=== PATIENT | female | born 1955 | race Caucasian/White ===

== ENCOUNTER 2021-04-29 14:58 | Emergency (ER) | payer OTHER ==
[2021-04-29] MEDS ORDERED: IBUPROFEN 600 MG TABLET (FP) PO ONE (15:03)
[2021-04-29 15:09] VITALS: BP 148/83; PULSE 63; TEMP 98.3; BMI 25.3
[2021-04-29] MEDS ORDERED: ACETAMINOPHEN 325 MG TABLET (FP) PO ONE (15:13)
[2021-04-29] MEDS ORDERED: ACETAMINOPHEN 325 MG TABLET (FP) ONE (15:30)
== END 2021-04-29 16:13 | disposition home or self-care (01) ==
LOC: FER 14:58
DX: S59.902A Unspecified injury of left elbow, initial encounter (principal); S00.81XA Abrasion of other part of head, initial encounter; S01.21XA Laceration without foreign body of nose, initial encounter; W01.198A Fall on same level from slipping, tripping and stumbling with subsequent striking against other object, initial encounter
CPT/HCPCS: 73070-TC-LT-FY; 73110-TC-LT-FY; 99284-25

== ENCOUNTER 2023-09-05 15:38 | Emergency (ER) | payer OTHER ==
[2023-09-05] MEDS ORDERED: ASPIRIN 81 MG CHEWABLE TABLETS PO ONE (15:41)
[2023-09-05] MEDS ORDERED: ASPIRIN 325 MG TABLET ONE (15:52)
[2023-09-05 16:00] VITALS: BP 153/87; PULSE 70; RESP 17; TEMP 98; BMI 23.8
[2023-09-05 16:38] LABS: HEMATOCRIT 40.6 % (32.4-45.2); HEMOGLOBIN 13.9 G/dL (10.7-15.3); MCHC 34.2 g/dl (32.0-36.0); MEAN CELL VOLUME 90.7 fl (80-96); MEAN PLT VOLUME 8.3 fl (7.5-11.1); PLATELET COUNT 205.8 10^3/uL (134-434); RBC 4.48 10^6/uL (3.60-5.2); RDW 14.7 % (11.6-15.6)
[2023-09-05 16:48] LABS: INR 1.02 (0.83-1.09); PROTHROMBIN TIME (PATIENT) 11.8 SEC (9.7-13.0)
[2023-09-05 16:51] LABS: ACTIVATED PTT 31.4 SECONDS (25.2-36.5)
[2023-09-05 16:53] LABS: PLATELET ESTIMATE ADEQUATE
[2023-09-05 16:53] LABS: ALBUMIN 4.6 g/dl (3.4-5.0); CALCIUM 10.3 mg/dl (8.5-10.1); CREATININE 0.6 mg/dl (0.6-1.3); TOT PROT 6.9 g/dl (6.4-8.2)
== END 2023-09-05 18:33 | disposition home or self-care (01) ==
LOC: FER 15:38
DX: R07.89 Other chest pain (principal)
CPT/HCPCS: 36415; 71046-TC-FY; 80053; 82550; 84484; 85027; 85610; 85730; 93005; 99285-25